=== PATIENT | male | born 1990 | race African-American/Black ===

== ENCOUNTER 2021-07-09 09:56 | Emergency (ER) | payer OTHER ==
[~2021-07-09] VITALS: Ht 188 cm; Wt 81.6 kg
[2021-07-09 09:57] VITALS: BP 118/65
[2021-07-09] MEDS ORDERED: ACETAMINOPHEN 500 MG TAB PO ONE (10:00)
[2021-07-09] MEDS ORDERED: cefTRIAXone SOD 1,000 MG VL IM ONE (10:45)
[2021-07-09] MEDS ORDERED: ACET-1080 PO (11:35)
[2021-07-09] MEDS ORDERED: AZIT500T66 PO (11:35)
== END 2021-07-09 11:40 | disposition home or self-care (01) ==
LOC: ER 09:56
DX: U07.1 COVID-19 (principal); J03.90 Acute tonsillitis, unspecified
CPT/HCPCS: 36415; 71045; 87426; 96372; 99284; J0696

== ENCOUNTER 2021-08-19 18:19 | Emergency (ER) | payer OTHER ==
[~2021-08-19] VITALS: Ht 185.4 cm; Wt 81.6 kg
[~2021-08-19 18:19] MED LIST: ACET-1080 PO; AZIT500T66 PO
[2021-08-19 19:11] VITALS: BP 135/76
[2021-08-19] MEDS ORDERED: IBUP800T26 PO (20:27)
== END 2021-08-19 23:44 | disposition home or self-care (01) ==
LOC: ER 18:19
DX: M25.562 Pain in left knee (principal); M79.605 Pain in left leg; F17.210 Nicotine dependence, cigarettes, uncomplicated; Z79.2 Long term (current) use of antibiotics; Z79.899 Other long term (current) drug therapy
CPT/HCPCS: 73562; 73590